=== PATIENT | female | born 1985 | race Caucasian/White ===

== ENCOUNTER 2016-12-14 21:30 | Emergency (ER) | payer MEDICAID ==
[~2016-12-14] VITALS: Ht 157.5 cm; Wt 62.0 kg
[~2016-12-14 21:30] MED LIST: LORA-441 PO
[2016-12-14 21:35] VITALS: Ht 157.5 cm; Wt 62.0 kg
[2016-12-15 00:19] LABS: URINE BLOOD (Dip) POC Negative (NEGATIVE)
[2016-12-15] MEDS ORDERED: HYDROCODONE/APAP (5/325) TAB PO ONE (01:00)
[2016-12-15 01:47] LABS: URINE BLOOD (Dip) POC Negative (NEGATIVE)
[2016-12-15 02:26] LABS: BASOPHILS % 0.3 % (0.0-2.0); EOSINOPHILS # 0.1 10^3/ul (0.0-0.5); EOSINOPHILS % 1.3 % (0.0-7.0); HEMATOCRIT 37.6 % (37.0-47.0); HEMOGLOBIN 13.2 g/dl (12.0-16.0); LYMPHOCYTES # 2.7 10^3/ul (0.8-2.9); LYMPHOCYTES % 37.6 % (15.0-51.0); MEAN CORPUSCULAR HEMOGLOBIN 31.5 pg (29.0-33.0); MEAN CORPUSCULAR HGB CONC 35.1 g/dl (32.0-37.0); MEAN CORPUSCULAR VOLUME 89.7 fl (82.0-101.0); MEAN PLATELET VOLUME 9.1 fl (7.4-10.4); MONOCYTE # 0.7 10^3/ul (0.3-0.9); MONOCYTES % 9.4 % (0.0-11.0); NEUTROPHIL # 3.7 10^3/ul (1.6-7.5); NEUTROPHILS % 51.4 % (39.0-77.0); PLATELET COUNT 209 10^3/UL (140-440); RED BLOOD COUNT 4.19 10^6/ul (4.20-5.40); RED CELL DISTRIBUTION WIDTH 13.3 % (11.5-14.5); UNCORRECTED WBC 7.1 10^3/ul (4.8-10.8); WHITE BLOOD COUNT 7.1 10^3/ul (4.8-10.8)
[2016-12-15 02:26] LABS: ADD UMIC NO; URINE BILIRUBIN (Dip) NEGATIVE (NEGATIVE); URINE BLOOD (Dip) NEGATIVE (NEGATIVE); URINE COLOR LT. YELLOW (YELLOW); URINE GLUCOSE (Dip) NEGATIVE (NEGATIVE); URINE KETONES (Dip) TRACE (NEGATIVE); URINE LEUKOCYTE ESTERASE (Dip) NEGATIVE (NEGATIVE); URINE NITRITE (Dip) NEGATIVE (NEGATIVE); URINE TOTAL PROTEIN (Dip) NEGATIVE (NEGATIVE); URINE UROBILINOGEN (Dip) 0.2 E.U./dL (0.1-1.0)
[2016-12-15 02:30] LABS: CONDITION 1
[2016-12-15 02:31] LABS: ALBUMIN 4.5 g/dl (3.3-4.9)
[2016-12-15 02:32] LABS: POTASSIUM 3.9 mmol/L (3.5-5.1)
[2016-12-15 02:34] LABS: ALBUMIN/GLOBULIN RATIO 1.07; BILIRUBIN,INDIRECT 0.4 mg/dl (0-1.1); BILIRUBIN,TOTAL 0.4 mg/dl (0.2-1.3); CREATININE 0.59 mg/dl (0.44-1.00); TOTAL PROTEIN 8.7 g/dl (6.1-8.1)
[2016-12-15 02:35] LABS: CALCIUM 9.3 mg/dl (8.4-10.2)
--- NOTE | 2016-12-15 02:35 | RADRPT ---
PROCEDURE: CT ABDOMEN/PELVIS WITHOUT CONTRAST CLINICAL INDICATION: 31-year-old female with abdominal pain. TECHNIQUE: The study was performed utilizing a GE swiftQueuepeed VCT 64-slice CT scanner. Direct axia l sections were obtained through the abdomen and pelvis without the use of intravenous contrast mate rial. Sagittal and coronal reformations were obtained. Automated exposure control and iterative yeyo nstruction techniques were utilized for this examination. The images were reviewed on a P[facility] workst [facility]. CTD/vol = 7.5 mGy; Total Exam DLP = 416.7 mGy-cm. COMPARISON: None. FINDINGS: There is a calcified granuloma within the medial aspect of the right lung base measuring 4 x 4 mm in axial image 3-24. There is no evidence for significant pleural effusion. The liver has a normal s ize and contour without focal areas of abnormal density. No intrahepatic nor extrahepatic biliary du ctal dilatation is seen. The gallbladder demonstrates no wall thickening nor pericholecystic fluid. No biliary stones are evident. The pancreas is without areas of abnormal attenuation. The spleen is identified and has a normal size without abnormal density. The adrenal glands are unremarkable. The kidneys are without abnormal density. No hydroureteronephrosis nor nephroureterolithiasis is eviden t. The urinary bladder contains minimal urine. There is retained stool within the colon without dany s bowel obstruction. An anastomotic reji are seen within the tip of the cecum consistent with pr ior appendectomy. The uterus is retroverted. There is no significant free fluid. The aortoiliac vessels are without aneurysmal dilatation. The osseous structures are intact. IMPRESSION: 1. Right lung base calcified 4 mm granuloma. 2. No CT evidence for obstructive uropathy or renal calculi. 3. Retained stool without gross bowel obstruction. 4. Status post appendectomy. .Jim Poon MD, Date Time Electronically viewed and signed by .Jim Poon MD, on 12/15/2016 02:35 .Vimal/
--- NOTE | 2016-12-15 02:37 | RADRPT ---
PROCEDURE: ULTRASOUND PELVIS CLINICAL INDICATION: 31-year-old female with pelvic pain. TECHNIQUE: Multiple sonographic images of the pelvis were obtained utilizing a transabdominal and endovaginal technique. The images were reviewed on a PACS workstation. COMPARISON: CT abdomen/pelvis obtained concurrently. FINDINGS: The uterus is visualized and measures 6.5 x 3.3 x 4.6 cm. The endometrial echo complex is within nor mal limits and measures 6.1 mm. There is trace fluid within the endometrial canal. There is trace f luid within the posterior cul-de-sac. The right ovary has a normal echotexture and measures 3.3 x 1 .9 x 2.9 cm. There is a small right ovarian follicular cyst measuring 1.1 x 1.1 cm. The left ovary h as a normal echotexture and measures 2.2 x 1.3 x 1.5 cm. There is flow identified within the ovarie s bilaterally. No adnexal masses are noted. IMPRESSION: 1. Trace fluid within the endometrial canal. 2. Small right ovarian follicular cyst. 3. Trace fluid within the posterior cul-de-sac. .Jim Poon MD, MD Date Time Electronically viewed and signed by .Jim Poon MD, on 12/15/2016 02:37 .M/
[2016-12-15] MEDS ORDERED: IBUP-1542 PO (03:12)
--- NOTE | 2016-12-15 03:22 | ERD ---
ER Documentation Chief Complaint Date/Time DATE: 12/15/16 TIME: 03:19 Chief Complaint kerwin pelvic pain going to back x 2 weeks now w/vag bleed of clots HPI This is a 31-year-old female presents to the ER with pelvic pain has been going on for the last week. Patient states that she's had this over the last 3 months however over the last week his current a lot worse. Today patient had a lot of vaginal bleeding with clots. Patient states she's not had her menstrual period for the last 3 months. However started bleeding on Friday. She denies any vaginal discharge. She denies any nausea vomiting or diarrhea. She denies any fevers or chills. His appetite is normal. Pelvic pain is described as sharp and is intermittent. It is nonradiating. Patient tried anything for the pain. ROS 12 point review of systems was done, all negative except per HPI. Medications Home Meds Active Scripts Ibuprofen* (Ibuprofen*) 600 Mg Tablet, 600 MG PO Q6 for 3 Days, TAB Prov:CEDRICK WYMAN 12/15/16 Lorazepam* (Ativan*) 0.5 Mg Tablet, 0.5 MG PO Q8H Y for ANXIETY, #10 TAB Prov:PAPI OLIVIA 08/01/16 Allergies Allergies: Coded Allergies: No Known Allergy (Unverified , 08/01/16) PMhx/Soc History of Surgery: No Anesthesia Reaction: No Hx Neurological Disorder: No Hx Respiratory Disorders: No Hx Cardiac Disorders: No Hx Psychiatric Problems: No Hx Miscellaneous Medical Probl: No Hx Alcohol Use: No Hx Substance Use: No Hx Tobacco Use: No Physical Exam Vitals Vital Signs Date Time Temp Pulse Resp B/P Pulse Ox O2 Delivery O2 Flow Rate FiO2 12/14/16 21:35 98.3 74 18 106/59 100 Physical Exam GENERAL: The patient is well developed and appropriate for usual state of health , in no apparent distress. HEENT: Atraumatic. CHEST: Clear to auscultation bilaterally. There are no rales, wheezes or rhonchi. HEART: Regular rate and rhythm. No murmurs, clicks, rubs or gallops. ABDOMEN: Soft, nontender and nondistended. Good bowel sounds. No rebound or guarding. No gross peritonitis. No gross organomegaly or masses. No Nielson sign or McBurney point tenderness. BACK: No midline or flank tenderness. EXTREMITIES: Full range of motion. Grossly neurovascularly intact. NEURO: Alert and oriented. SKIN: The skin is warm and dry. Result Diagram: 12/15/16 0148 12/15/16 0148 Results 24 hrs Laboratory Tests Test 12/15/16 00:20 12/15/16 01:41 12/15/16 01:48 Bedside Urine Blood Negative Negative Bedside Urine Glucose (UA) Negative Negative Bedside Urine Ketones (LAB) Negative Negative Bedside Urine Leukocyte Esterase (L Negative Negative Bedside Urine Nitrite (LAB) Negative Negative Bedside Urine Protein (LAB) Negative Negative Bedside Urine pH (LAB) 6.0 6.0 Urine Bilirubin NEGATIVE Urine Clarity CLEAR Urine Color LT. YELLOW Urine Glucose NEGATIVE% Urine Hemoglobin NEGATIVE Urine Ketones TRACE Urine Leukocyte Esterase NEGATIVE Urine Nitrite NEGATIVE Urine Specific [place] 1.025 Urine Total Protein NEGATIVE Urine Urobilinogen 0.2 E.U./dL Urine pH 5.5 Alanine Aminotransferase (ALT/SGPT) 30IU/L Albumin 4.5g/dl Albumin/Globulin Ratio 1.07 Alkaline Phosphatase 74IU/L Anion Gap 19 Aspartate Amino Transf (AST/SGOT) 20IU/L Basophils # 0.010^3/ul Basophils % 0.3% Blood Urea Nitrogen 14mg/dl Calcium Level 9.3mg/dl Carbon Dioxide Level 26mmol/L Chloride Level 104mmol/L Creatinine 0.59mg/dl Direct Bilirubin 0.00mg/dl Eosinophils # 0.110^3/ul Eosinophils % 1.3% Globulin 4.20g/dl Glucose Level 84mg/dl Hematocrit 37.6% Hemoglobin 13.2g/dl Indirect Bilirubin 0.4mg/dl Lipase 156U/L Lymphocytes # 2.710^3/ul Lymphocytes % 37.6% Mean Corpuscular Hemoglobin 31.5pg Mean Corpuscular Hemoglobin Concent 35.1g/dl Mean Corpuscular Volume 89.7fl Mean Platelet Volume 9.1fl Monocytes # 0.710^3/ul Monocytes % 9.4% Neutrophils # 3.710^3/ul Neutrophils % 51.4% Nucleated Red Blood Cells # 0.010^3/ul Nucleated Red Blood Cells % 0.0/100WBC Platelet Count 86392^3/UL Potassium Level 3.9mmol/L Red Blood Count 4.1910^6/ul Red Cell Distribution Width 13.3% Sodium Level 145mmol/L Total Bilirubin 0.4mg/dl Total Protein 8.7g/dl White Blood Count 7.110^3/ul Current Medications Medications (Trade) Dose Ordered Sig/Sunny Route PRN Reason Start Time Stop Time Status Last Admin Dose Admin Acetaminophen/ Hydrocodone Bitart ([place] (5/325)) 1 tab ONCE ONCE PO 12/15/16 01:00 12/15/16 01:01 DC 12/15/16 01:42 Procedures/MDM Differential diagnosis includes but is not limited to appendicitis, hernia, UTI , constipation, ectopic , ovarian torsion, , fibroid. At this time etiology of pelvic pain is unknown. There is a small ovarian cyst. She also had constipation. At this time patient evidence for acute abdomen. She is afebrile and well-appearing. She'll be sent home with ibuprofen. She is to follow-up with her primary care doctor within 1-2 days or return to ER sooner symptoms worsen. Medical decision making [place] with the patient she understands and agrees with plan. Departure Diagnosis: Primary Impression: Pelvic pain Condition: Stable Patient Instructions: Pelvic Pain, Unknown Cause [facility]: [facility] Usted se arteaga hecho un examen mdico de control que le indica que no est en barbara condicin que requiera tratamiento urgente en el Departamento de Emergencia. Un estudio ms profundo y el tratamiento de quinn condicin pueden esperar sin ningn riesgo hasta que usted sea atendida/o en el consultorio de quinn mdico o barbara cl ramonita. Es responsabilidad suya arreglar barbara maki para el seguimiento del afshin. MANEJO DE CONDICIONES NO URGENTES EN EL FUTURO 1) Si usted tiene un mdico de atencin primaria: Usted debera llamar a quinn mdico de atencin primaria antes de venir al departamento de emergencia. Despus de las horas de consultorio, quinn doctor o quinn asociado/a est disponible por telfono. El mdico o enfermero de nadiya en el servicio telefnico puede asesorarle por beverly medio para atender el problema, o afshin contrario se puede programar barbara maki. 2) Si usted no tiene un mdico de atencin primaria: Llame al mdico o clnica de referencia que aparece abajo sacha las horas de consultorio para hacer barbara maki para que le vean. CLINICAS: [facility] [phone] [facility] [phone] [facility] [phone] [facility] [facility] [phone] [facility] [place] [phone] [facility]. [phone] [address] Additional Instructions: Call your primary care doctor TOMORROW for an appointment during the next 1-2 days.See the doctor sooner or return here if your condition worsens before your appointment time. CEDRICK WYMAN Dec 15, 2016 03:22
[2016-12-15 03:32] VITALS: BP 98/50; PULSE 69; RESP 17; TEMP 97.8
== END 2016-12-15 03:32 | disposition home or self-care (01) ==
LOC: FTE 21:30
DX: R10.2 Pelvic and perineal pain (principal)
CPT/HCPCS: 36415; 74176; 76830; 76856; 80053; 81003; 83690; 85025; Z7502; Z7610

== ENCOUNTER 2017-03-02 20:58 | Emergency (ER) | payer MEDICAID ==
[~2017-03-02] VITALS: Ht 157.5 cm; Wt 60.0 kg
[~2017-03-02 20:58] MED LIST changes: +IBUP-1542 PO
[2017-03-02 21:07] VITALS: Ht 157.5 cm; Wt 60.0 kg
[2017-03-02 22:00] LABS: ADD SCAN DIFF NO; BASOPHILS % 0.1 % (0.0-2.0); EOSINOPHILS # 0.1 10^3/ul (0.0-0.5); EOSINOPHILS % 1.9 % (0.0-7.0); HEMATOCRIT 40.2 % (37.0-47.0); HEMOGLOBIN 13.9 g/dl (12.0-16.0); LYMPHOCYTES # 2.5 10^3/ul (0.8-2.9); MEAN CORPUSCULAR HEMOGLOBIN 31.1 pg (29.0-33.0); MEAN CORPUSCULAR HGB CONC 34.6 g/dl (32.0-37.0); MEAN CORPUSCULAR VOLUME 89.9 fl (82.0-101.0); MEAN PLATELET VOLUME 10.5 fl (7.4-10.4); MONOCYTE # 0.6 10^3/ul (0.3-0.9); MONOCYTES % 8.7 % (0.0-11.0); NEUTROPHILS % 54.7 % (39.0-77.0); PLATELET COUNT 244 10^3/UL (140-415); RED BLOOD COUNT 4.47 10^6/ul (4.20-5.40); RED CELL DISTRIBUTION WIDTH 11.9 % (11.5-14.5); WHITE BLOOD COUNT 7.2 10^3/ul (4.8-10.8)
[2017-03-02] MEDS ORDERED: LORAZEPAM 2 MG INJ IV ONE (22:00)
[2017-03-02 22:12] LABS: CHLORIDE 106 mmol/L (97-110); INR 0.94; PARTIAL THROMBOPLASTIN TIME 29.3 Sec (25.0-35.0); POTASSIUM 3.3 mmol/L (3.5-5.1); PROTIME 12.6 Sec (12.2-14.2); SODIUM 142 mmol/L (135-144)
[2017-03-02 22:14] LABS: CREATININE 0.58 mg/dl (0.44-1.00)
[2017-03-02 22:15] LABS: ALANINE AMINOTRANSFERASE 28 IU/L (13-69); ALKALINE PHOSPHATASE 80 IU/L (42-121); ASPARTATE AMINO TRANSFERASE 28 IU/L (15-46); BILIRUBIN,INDIRECT 0.2 mg/dl (0-1.1); BILIRUBIN,TOTAL 0.2 mg/dl (0.2-1.3); BLOOD UREA NITROGEN 14 mg/dl (7-20); CARBON DIOXIDE 23 mmol/L (21-31); GLUCOSE 102 mg/dl (70-220); TOTAL PROTEIN 9.2 g/dl (6.1-8.1)
[2017-03-02 22:16] LABS: CALCIUM 9.8 mg/dl (8.4-10.2)
[2017-03-02 22:23] LABS: ALBUMIN/GLOBULIN RATIO 1.19; ANION GAP 16 (8-16); B-TYPE NATRIURETIC PEPTIDE 16 PG/ML (0-125)
--- NOTE | 2017-03-02 22:26 | RADRPT ---
PROCEDURE: XR Chest AP portable CLINICAL INDICATION: Chest pain TECHNIQUE: An AP portable radiograph of the chest was submitted. COMPARISON: None. FINDINGS: Support Hardware: None Cardiovascular: The cardiovascular silhouette appears unremarkable. Lung Lorenzo: The lung lorenzo appear clear with no nodule, alveolar infiltrate, or interstitial promi nence evident. Pleural Spaces: No pneumothorax or pleural effusion is identified. Osseous Structures: The osseous structures appear intact. Soft Tissues: The soft tissues appear unremarkable. IMPRESSION: Unremarkable portable chest. Physician Masoud Date Time Electronically viewed and signed by Micheline Garza Physician on 03/02/2017 22:25 /
[2017-03-02 22:56] LABS: TROPONIN-I < 0.012 ng/ml (0.00-0.12)
[2017-03-02 23:18] LABS: ADD UMIC YES; URINE BILIRUBIN (Dip) NEGATIVE (NEGATIVE); URINE BLOOD (Dip) 1+ (NEGATIVE); URINE COLOR RED (YELLOW); URINE GLUCOSE (Dip) NEGATIVE (NEGATIVE); URINE KETONES (Dip) NEGATIVE (NEGATIVE); URINE LEUKOCYTE ESTERASE (Dip) NEGATIVE (NEGATIVE); URINE NITRITE (Dip) POSITIVE (NEGATIVE); URINE TOTAL PROTEIN (Dip) NEGATIVE (NEGATIVE); URINE UROBILINOGEN (Dip) 0.2 E.U./dL (0.1-1.0)
[2017-03-02 23:27] LABS: BACTERIA,URINE MODERATE; SQUAMOUS EPITHELIAL CELL,UR FEW
[2017-03-02] MEDS ORDERED: CIPR500T4 PO (23:49)
[2017-03-02] MEDS ORDERED: LORA-441 PO (23:49)
--- NOTE | 2017-03-02 23:51 | ERD ---
ER Documentation Chief Complaint Date/Time DATE: 03/02/17 TIME: 23:50 Chief Complaint arteaga, cp with radiation to left arm, n/v, HPI This is a 32 female, headache has been radiation of left arm. With minimal nausea vomiting. 2 episodes of vomiting. Nonbilious. Also complaining of urgency and frequency of urination. No fevers no chills. No other current complaints. ROS All systems reviewed and are negative except as per history of present illness. Medications Home Meds Active Scripts Lorazepam* (Ativan*) 0.5 Mg Tablet, 0.5 MG PO Q8H Y for ANXIETY, #10 TAB Prov:PEARL PETERSON S. 03/02/17 Ciprofloxacin Hcl* (Ciprofloxacin Hcl*) 500 Mg Tablet, 500 MG PO BID for 5 Days , TAB Prov:PEARL PETERSON S. 03/02/17 Ibuprofen* (Ibuprofen*) 600 Mg Tablet, 600 MG PO Q6 for 3 Days, TAB Prov:CEDRICK WYMAN 12/15/16 Lorazepam* (Ativan*) 0.5 Mg Tablet, 0.5 MG PO Q8H Y for ANXIETY, #10 TAB Prov:PAPI OLIVIA 08/01/16 Allergies Allergies: Coded Allergies: No Known Allergy (Unverified , 08/01/16) PMhx/Soc History of Surgery: Yes (appendectomy) Anesthesia Reaction: No Hx Neurological Disorder: No Hx Respiratory Disorders: No Hx Cardiac Disorders: Yes (HTN) Hx Psychiatric Problems: No Hx Miscellaneous Medical Probl: No Hx Alcohol Use: No Hx Substance Use: No Hx Tobacco Use: No Smoking Status: Never smoker Physical Exam Vitals Vital Signs Date Time Temp Pulse Resp B/P Pulse Ox O2 Delivery O2 Flow Rate FiO2 03/02/17 22:34 66 16 110/77 100 Nasal Cannula 03/02/17 22:03 Nasal Cannula 2 03/02/17 21:07 98.5 87 16 124/79 100 Physical Exam Const: [] Head: Atraumatic Eyes: Normal Conjunctiva ENT: Normal External Ears, Nose and Mouth. Neck: Full range of motion..~ No meningismus. Resp: Clear to auscultation bilaterally Cardio: Regular rate and rhythm, no murmurs Abd: Soft, non tender, non distended. Normal bowel sounds Skin: No petechiae or rashes Back: No midline or flank tenderness Ext: No cyanosis, or edema Neur: Awake and alert Psych: Normal Mood and Affect Result Diagram: 03/02/17215003/02/172150 Results 24 hrs Laboratory Tests Test 03/02/17 21:51 03/02/17 23:00 White Blood Count 7.210^3/ul Red Blood Count 4.4710^6/ul Hemoglobin 13.9g/dl Hematocrit 40.2% Mean Corpuscular Volume 89.9fl Mean Corpuscular Hemoglobin 31.1pg Mean Corpuscular Hemoglobin Concent 34.6g/dl Red Cell Distribution Width 11.9% Platelet Count 51488^3/UL Mean Platelet Volume 10.5fl Neutrophils % 54.7% Lymphocytes % 34.0% Monocytes % 8.7% Eosinophils % 1.9% Basophils % 0.1% Nucleated Red Blood Cells % 0.0/100WBC Neutrophils # 4.010^3/ul Lymphocytes # 2.510^3/ul Monocytes # 0.610^3/ul Eosinophils # 0.110^3/ul Basophils # 0.010^3/ul Nucleated Red Blood Cells # 0.010^3/ul Prothrombin Time 12.6Sec Prothrombin Time Ratio 1.0 INR International Normalized Ratio 0.94 Activated Partial Thromboplast Time 29.3Sec Sodium Level 142mmol/L Potassium Level 3.3mmol/L Chloride Level 106mmol/L Carbon Dioxide Level 23mmol/L Anion Gap 16 Blood Urea Nitrogen 14mg/dl Creatinine 0.58mg/dl Glucose Level 102mg/dl Calcium Level 9.8mg/dl Total Bilirubin 0.2mg/dl Direct Bilirubin 0.00mg/dl Indirect Bilirubin 0.2mg/dl Aspartate Amino Transf (AST/SGOT) 28IU/L Alanine Aminotransferase (ALT/SGPT) 28IU/L Alkaline Phosphatase 80IU/L Troponin I < 0.012ng/ml B-Type Natriuretic Peptide 16PG/ML Total Protein 9.2g/dl Albumin 5.0g/dl Globulin 4.20g/dl Albumin/Globulin Ratio 1.19 Urine Color RED Urine Clarity SL HAZY Urine pH 6.0 Urine Specific [place] 1.020 Urine Ketones NEGATIVE Urine Nitrite POSITIVE Urine Bilirubin NEGATIVE Urine Urobilinogen 0.2 E.U./dL Urine Leukocyte Esterase NEGATIVE Urine Microscopic RBC 2-5/HPF Urine Microscopic WBC 0-2/HPF Urine Squamous Epithelial Cells FEW Urine Bacteria MODERATE Urine Hemoglobin 1+ Urine Glucose NEGATIVE% Urine Total Protein NEGATIVE Current Medications Medications (Trade) Dose Ordered Sig/Sunny Route PRN Reason Start Time Stop Time Status Last Admin Dose Admin Lorazepam (Ativan) 1 mg ONCE ONCE IV 03/02/17 22:00 03/02/17 22:01 DC 03/02/17 22:06 Procedures/MDM EKG: Rate/Rhythm: [Normal Sinus Rhythm] QRS, ST, T-waves: [No changes consistent w/ acute ischemia] Impression: [No evidence of ischemia or arrhythmia] Chest X-ray 1V Interpreted by me: Soft Tissue: No acute abnormalities Bones: No acute abnormalities Mediastinum/Cardiac Silhouette/Lungs: [No acute abnormalities] Medical decision-making: Patient has evidence of anxiety. Patient states she has been very anxious over the past few days. She also has evidence of UTI. Patient will be discharged home with Cipro along with lorazepam. Follow-up in 8 hours for serial abdominal exams which he agrees. Departure Diagnosis: Primary Impression: Multiple complaints Condition: Stable Patient Instructions: Urinary Tract Infections in Women, Anxiety Reaction PEARL PETERSON Mar 02, 2017 23:51
[2017-03-03 00:07] VITALS: BP 102/70; PULSE 93; RESP 16; TEMP 97.5
== END 2017-03-03 00:10 | disposition home or self-care (01) ==
LOC: E/R 20:58
DX: F41.9 Anxiety disorder, unspecified (principal); N39.0 Urinary tract infection, site not specified; R11.2 Nausea with vomiting, unspecified; I10 Essential (primary) hypertension; R40.2142 Coma scale, eyes open, spontaneous, at arrival to emergency department; R40.2252 Coma scale, best verbal response, oriented, at arrival to emergency department; R40.2362 Coma scale, best motor response, obeys commands, at arrival to emergency department; R07.9 Chest pain, unspecified
CPT/HCPCS: 71010; 80053; 81001; 83880; 84484; 85025; 85610; 85730; 93005; J2060; 36415; 81003; 96374

== ENCOUNTER 2017-03-28 11:51 | Emergency (ER) | payer MEDICAID ==
[~2017-03-28] VITALS: Wt 55.4 kg
[~2017-03-28 11:51] MED LIST changes: +CIPR500T4 PO
[2017-03-28] MEDS ORDERED: ONDANSETRON 4 MG INJ IV STA (12:47)
[2017-03-28] MEDS ORDERED: morphine 4 MG/ML VIAL IV STA (12:47)
[2017-03-28 13:05] LABS: ADD UMIC YES; URINE BILIRUBIN (Dip) NEGATIVE (NEGATIVE); URINE BLOOD (Dip) 3+ (NEGATIVE); URINE COLOR LT. YELLOW (YELLOW); URINE GLUCOSE (Dip) NEGATIVE (NEGATIVE); URINE KETONES (Dip) NEGATIVE (NEGATIVE); URINE LEUKOCYTE ESTERASE (Dip) NEGATIVE (NEGATIVE); URINE NITRITE (Dip) NEGATIVE (NEGATIVE); URINE TOTAL PROTEIN (Dip) TRACE (NEGATIVE); URINE UROBILINOGEN (Dip) 0.2 E.U./dL (0.1-1.0)
[2017-03-28 13:19] LABS: BACTERIA,URINE MANY
[2017-03-28 13:47] LABS: ADD SCAN DIFF NO
[2017-03-28 13:51] LABS: BASOPHILS % 0.2 % (0.0-2.0); EOSINOPHILS # 0.1 10^3/ul (0.0-0.5); EOSINOPHILS % 1.9 % (0.0-7.0); HEMATOCRIT 38.4 % (37.0-47.0); HEMOGLOBIN 13.2 g/dl (12.0-16.0); LYMPHOCYTES # 1.9 10^3/ul (0.8-2.9); LYMPHOCYTES % 30.5 % (15.0-51.0); MEAN CORPUSCULAR HEMOGLOBIN 31.3 pg (29.0-33.0); MEAN CORPUSCULAR HGB CONC 34.4 g/dl (32.0-37.0); MONOCYTE # 0.5 10^3/ul (0.3-0.9); NEUTROPHIL # 3.6 10^3/ul (1.6-7.5); NEUTROPHILS % 58.9 % (39.0-77.0); PLATELET COUNT 213 10^3/UL (140-415); RED BLOOD COUNT 4.22 10^6/ul (4.20-5.40); RED CELL DISTRIBUTION WIDTH 12.2 % (11.5-14.5); WHITE BLOOD COUNT 6.2 10^3/ul (4.8-10.8)
[2017-03-28 14:06] LABS: ALBUMIN 4.7 g/dl (3.3-4.9)
[2017-03-28 14:07] LABS: POTASSIUM 3.7 mmol/L (3.5-5.1)
[2017-03-28 14:09] LABS: BILIRUBIN,INDIRECT 0.4 mg/dl (0-1.1); BILIRUBIN,TOTAL 0.4 mg/dl (0.2-1.3); CREATININE 0.8 mg/dl (0.44-1.00)
[2017-03-28 14:10] LABS: ALBUMIN/GLOBULIN RATIO 1.23; CALCIUM 9.1 mg/dl (8.4-10.2); TOTAL PROTEIN 8.5 g/dl (6.1-8.1)
--- NOTE | 2017-03-28 14:24 | RADRPT ---
PROCEDURE: US Pelvis. CLINICAL INDICATION: Right pelvic pain. TECHNIQUE: The pelvis was evaluated with transabdominal and transvaginal sonography in the axial a nd sagittal planes. COMPARISON: Pelvic ultrasound dated 12/15/2016. FINDINGS: Uterus: 5.8 x 3.4 x 4.2 cm. Endometrium: 2.6 mm. Right ovary: 3.2 x 1.5 x 2.1 cm. Left ovary: 2.9 x 1.5 x 2.2 cm. Uterine masses: None. Ovarian masses: None. Color Doppler and pulsed Doppler sonography demonstrate normal flow to the ova dio. Other pelvic masses: None. Free fluid: None. IMPRESSION: 1. Normal pelvic ultrasound. RPTAT: QQ .Bashir Jules MD, Date Time Electronically viewed and signed by .Bashir Jules MD, on 03/28/2017 14:24 .R/
[2017-03-28] MEDS ORDERED: SOD CHLORIDE 0.9% 1,000 ML IV ONE (15:30)
[2017-03-28] MEDS ORDERED: ONDA4TAB14 PO (16:31)
[2017-03-28] MEDS ORDERED: METR500T PO (16:31)
[2017-03-28] MEDS ORDERED: ACET1TAB40 PO (16:31)
[2017-03-28] MEDS ORDERED: CIPR500T4 PO (16:31)
--- NOTE | 2017-03-28 16:43 | ERD ---
ER Documentation Chief Complaint Date/Time DATE: 03/28/17 TIME: 16:38 Chief Complaint R SIDE AP AND POSSIBLE , NO VOMITING.DIARRHEA NOTED. HPI 31-year-old female patient with a past medical history of hypertension presents to the ED complaining of intermittent abdominal pain for the last 3 months. Reports that she has had diarrhea for the last 25 days and has had intermittent. Reports that she was here in November 2016 and was diagnosed with a right ovarian cyst. Reports that she feels like her abdomen is pulsating in the middle and has pain on the surrounding areas. States that she feels like her belly is inflamed. States that she also experienced some vaginal bleeding with clotting yesterday. States that she has had a previous appendectomy, 7 years ago. She is a . Denies any chest pain, shortness of breath, vomiting. Denies any abdominal trauma. ROS All systems reviewed and are negative except as per history of present illness. Medications Home Meds Active Scripts Ondansetron (Ondansetron Odt) 4 Mg Tab.rapdis, 4 MG PO Q6H Y for NAUSEA AND/OR VOMITING, #10 TAB Prov:ABHIJIT AARON PA-C 03/28/17 Acetaminophen with Codeine (Acetaminophen-Cod #3 Tablet) 1 Each Tablet, 1 TAB PO Q6H Y for PAIN, #14 TAB Prov:ABHIJIT AARON PA-C 03/28/17 Metronidazole* (Flagyl*) 500 Mg Tablet, 500 MG PO TID for 7 Days, TAB no drinking alcohol while taking this medication Prov:ABHIJIT AARON PA-C 03/28/17 Ciprofloxacin Hcl* (Ciprofloxacin Hcl*) 500 Mg Tablet, 500 MG PO BID for 7 Days , TAB Prov:ABHIJIT AARON PA-C 03/28/17 Lorazepam* (Ativan*) 0.5 Mg Tablet, 0.5 MG PO Q8H Y for ANXIETY, #10 TAB Prov:PEARL PETERSON 03/02/17 Ciprofloxacin Hcl* (Ciprofloxacin Hcl*) 500 Mg Tablet, 500 MG PO BID for 5 Days , TAB Prov:PEARL PETERSON 03/02/17 Ibuprofen* (Ibuprofen*) 600 Mg Tablet, 600 MG PO Q6 for 3 Days, TAB Prov:CEDRICK WYMAN 12/15/16 Lorazepam* (Ativan*) 0.5 Mg Tablet, 0.5 MG PO Q8H Y for ANXIETY, #10 TAB Prov:PAPI OLIVIA 08/01/16 Allergies Allergies: Coded Allergies: No Known Allergy (Unverified , 08/01/16) PMhx/Soc History of Surgery: Yes (appendectomy) Anesthesia Reaction: No Hx Neurological Disorder: No Hx Respiratory Disorders: No Hx Cardiac Disorders: Yes (HTN) Hx Psychiatric Problems: No Hx Miscellaneous Medical Probl: No Hx Alcohol Use: No Hx Substance Use: No Hx Tobacco Use: No Physical Exam Vitals Vital Signs Date Time Temp Pulse Resp B/P Pulse Ox O2 Delivery O2 Flow Rate FiO2 03/28/17 12:02 98.5 73 21 107/67 100 Physical Exam Const: Vbl-psg-timckoraj, well-nourished. In no acute distress. Head: Atraumatic, normocephalic Eyes: Normal Conjunctiva without injection. No purulent discharge. ENT: Normal external ear, nose. Moist oropharynx without tonsillar exudates. Non -erythematous pharynx. Uvula midline. No drooling. No trismus. Neck: No cervical midline tenderness. Full range of motion. No meningismus. No cervical lymphadenopathy. No JVD. Resp: Clear to auscultation bilaterally. No wheezing, rhonchi, rales, or crackles. No accessory muscle use. No retractions. Cardio: Regular rate and rhythm. No murmurs, rubs or gallops. Abd: Soft, diffuse tenderness to palpation, non distended. Normal bowel sounds. No palpable masses. No rebound tenderness. No guarding. Negative McBurney' s point. Negative psoas sign. Negative obturator sign. Skin: No petechiae or rashes Back: No midline tenderness. No CVA tenderness. Ext: No cyanosis, or edema. Neur: Awake and alert. Normal gait. Normal coordination. Psych: Normal Mood and Affect Results 24 hrs Laboratory Tests Test 03/28/17 12:37 03/28/17 13:30 Urine Color LT. YELLOW Urine Clarity CLEAR Urine pH 8.0 Urine Specific [place] 1.010 Urine Ketones NEGATIVE Urine Nitrite NEGATIVE Urine Bilirubin NEGATIVE Urine Urobilinogen 0.2 E.U./dL Urine Leukocyte Esterase NEGATIVE Urine Microscopic RBC 10-25/HPF Urine Microscopic WBC 5-10/HPF Urine Epithelial Cells FEW Urine Amorphous Phosphates MANY Urine Bacteria MANY Urine Hemoglobin 3+ Urine Glucose NEGATIVE% Urine Total Protein TRACE White Blood Count 6.210^3/ul Red Blood Count 4.2210^6/ul Hemoglobin 13.2g/dl Hematocrit 38.4% Mean Corpuscular Volume 91.0fl Mean Corpuscular Hemoglobin 31.3pg Mean Corpuscular Hemoglobin Concent 34.4g/dl Red Cell Distribution Width 12.2% Platelet Count 49071^3/UL Mean Platelet Volume 11.0fl Neutrophils % 58.9% Lymphocytes % 30.5% Monocytes % 8.0% Eosinophils % 1.9% Basophils % 0.2% Nucleated Red Blood Cells % 0.0/100WBC Neutrophils # 3.610^3/ul Lymphocytes # 1.910^3/ul Monocytes # 0.510^3/ul Eosinophils # 0.110^3/ul Basophils # 0.010^3/ul Nucleated Red Blood Cells # 0.010^3/ul Stool Occult Blood POSITIVE Sodium Level 139mmol/L Potassium Level 3.7mmol/L Chloride Level 102mmol/L Carbon Dioxide Level 25mmol/L Anion Gap 16 Blood Urea Nitrogen 15mg/dl Creatinine 0.80mg/dl Glucose Level 95mg/dl Calcium Level 9.1mg/dl Total Bilirubin 0.4mg/dl Direct Bilirubin 0.00mg/dl Indirect Bilirubin 0.4mg/dl Aspartate Amino Transf (AST/SGOT) 21IU/L Alanine Aminotransferase (ALT/SGPT) 30IU/L Alkaline Phosphatase 77IU/L Total Protein 8.5g/dl Albumin 4.7g/dl Globulin 3.80g/dl Albumin/Globulin Ratio 1.23 Lipase 151U/L Current Medications Medications (Trade) Dose Ordered Sig/Sunny Route PRN Reason Start Time Stop Time Status Last Admin Dose Admin Ondansetron HCl (Zofran Inj) 4 mg ONCE STAT IV 03/28/17 12:47 03/28/17 12:49 DC 03/28/17 13:07 Morphine Sulfate 4 mg 4 mg ONCE STAT IV 03/28/17 12:47 03/28/17 12:49 DC 03/28/17 13:07 Sodium Chloride (NS) 1,000 ml @ 1,000 mls/hr Q1H ONCE IV 03/28/17 15:30 03/28/17 16:29 DC 03/28/17 15:49 Procedures/MDM This is a 31-year-old female patient with no significant past medical history presents the ED complaining of intermittent abdominal pain that started 3 months ago associated with 25 days of slightly bloody diarrhea and vaginal bleeding. Patient is afebrile and nontoxic-appearing. Patient has normal vital signs. Patient was further worked up with CBC, CMP, lipase, UA, urine , pelvic ultrasound. Patient's pain and symptoms have improved after treatment with 4 mg IV morphine, 4 mg IV zofran, 1 L normal saline. CBC: No leukocytosis. No e/o of systemic infection. No e/o anemia. CMP: No e/o severe acidosis, alkalosis, renal failure, diabetic ketoacidosis, liver disease Lipase within normal limits. Urine: No leukocyte esterase, no nitrites, no hematuria. Urine : Negative Positive Hemoccult PROCEDURE: US Pelvis. CLINICAL INDICATION: Right pelvic pain. TECHNIQUE: The pelvis was evaluated with transabdominal and transvaginal sonography in the axial and sagittal planes. COMPARISON: Pelvic ultrasound dated 12/15/2016. FINDINGS: Uterus: 5.8 x 3.4 x 4.2 cm. Endometrium: 2.6 mm. Right ovary: 3.2 x 1.5 x 2.1 cm. Left ovary: 2.9 x 1.5 x 2.2 cm. Uterine masses: None. Ovarian masses: None. Color Doppler and pulsed Doppler sonography demonstrate normal flow to the ovaries. Other pelvic masses: None. Free fluid: None. IMPRESSION: 1. Normal pelvic ultrasound. Patient had a positive Hemoccult stool test here in the ED. Patient could likely have possible colitis. Patient just had a recent CT scan of the abdomen and pelvis without contrast in November which was negative for any acute findings. No leukocytosis noted here in the ED. All blood work is unremarkable. I believe the risks of radiation outweigh the benefits at this time. Patient could benefit from following up with a credit control administrator for a colonoscopy. Patient is appropriate for outpatient antibiotics. A differential diagnosis considered includes but is not limited to gastritis, GERD , peptic ulcer disease, cholecystitis, choledocholithiasis, cholangitis, pancreatitis, appendicitis, bowel obstruction, ileus, volvulus, nephrolithiasis , pyelonephritis, hepatitis, perforated viscus, diverticulitis, abdominal hernia , acute abdomen, mesenteric ischemia or other emergent conditions. This case was discussed with my supervising physician, Dr. Coffman who agreed with the management and discharge plan. Discharge medications: Zofran, Tylenol #3, Ciprofloxacin, Flagyl. Follow up with primary care physician in 1-2 days for referral to credit control administrator. Instructed patient to return to the ED sooner for any worsening symptoms. Patient's questions were answered. Patient understood and agreed with discharge plan. Patient discharged stable. Departure Diagnosis: Primary Impression: Abdominal pain Abdominal location: unspecified location Qualified Code: R10.9 - Abdominal pain, unspecified location Additional Impressions: Diarrhea Diarrhea type: unspecified type Qualified Code: R19.7 - Diarrhea, unspecified type Vaginal bleeding Condition: Stable Patient Instructions: What Is Ulcerative Colitis?, Treating Diarrhea, Abdominal Pain, Unknown Cause, (Female) Referrals: [facility] YOU HAVE RECEIVED A MEDICAL SCREENING EXAM AND THE RESULTS INDICATE THAT YOU DO NOT HAVE A CONDITION THAT REQUIRES URGENT TREATMENT IN THE EMERGENCY DEPARTMENT. FURTHER EVALUATION AND TREATMENT OF YOUR CONDITION CAN WAIT UNTIL YOU ARE SEEN IN YOUR DOCTORS OFFICE WITHIN THE NEXT 1-2 DAYS. IT IS YOUR RESPONSIBILITY TO MAKE AN APPOINTMENT FOR FOLOW-UP CARE. IF YOU HAVE A PRIMARY DOCTOR --you should call your primary doctor and schedule an appointment IF YOU DO NOT HAVE A PRIMARY DOCTOR YOU CAN CALL OUR PHYSICIAN REFERRAL HOTLINE AT IF YOU CAN NOT AFFORD TO SEE A PHYSICIAN YOU CAN CHOSE FROM THE FOLLOWING [facility] [address] [facility] [address] [facility]. [facility] [address] [facility] [facility] [address] [facility] [address] [facility]. [facility]. [address] [facility] [facility] YOU HAVE RECEIVED A MEDICAL SCREENING EXAM AND THE RESULTS INDICATE THAT YOU DO NOT HAVE A CONDITION THAT REQUIRES URGENT TREATMENT IN THE EMERGENCY DEPARTMENT. FURTHER EVALUATION AND TREATMENT OF YOUR CONDITION CAN WAIT UNTIL YOU ARE SEEN IN YOUR DOCTORS OFFICE WITHIN THE NEXT 1-2 DAYS. IT IS YOUR RESPONSIBILITY TO MAKE AN APPOINTMENT FOR FOLOW-UP CARE. IF YOU HAVE A PRIMARY DOCTOR --you should call your primary doctor and schedule and appointment IF YOU DO NOT HAVE A PRIMARY DOCTOR YOU CAN CALL OUR PHYSICIAN REFERRAL HOTLINE AT . IF YOU CAN NOT AFFORD TO SEE A PHYSICIAN YOU CAN CHOSE FROM THE FOLLOWING [facility] INSTITUTIONS: [facility] [address] [place] [address] [facility] [address] [place] [address] [facility] [address] [place] [address] [facility]ENT [facility]/SPECIALTIES Additional Instructions: Llame al doctor MAANA y messi barbara MOLLY PARA DENTRO DE 1-2 FRY para un referido a un gastroenterlogo y gineclogo. Regrese a estas instalaciones si no se mejora joss esperbamos o joss le dijimos. ABHIJIT AARON PA-C March 28, 2017 16:42 dijimos. ABHIJIT AARON PA-C March 28, 2017 16:42
== END 2017-03-28 17:36 | disposition home or self-care (01) ==
LOC: FTE 11:51
DX: R10.84 Generalized abdominal pain (principal); R19.7 Diarrhea, unspecified; N93.9 Abnormal uterine and vaginal bleeding, unspecified; I10 Essential (primary) hypertension; R10.2 Pelvic and perineal pain
CPT/HCPCS: 76830; 76856; 80053; 81001; 82270; 83690; 85025; J2270; J2405; J7030; 36415; 81003; 96374; 96375

== ENCOUNTER 2018-12-05 11:03 | Emergency (ER) | payer MEDICAID ==
[~2018-12-05] VITALS: Ht 152.4 cm; Wt 62.7 kg
[~2018-12-05 11:03] MED LIST changes: +ACET1TAB40 PO; +METR500T PO; +ONDA4TAB14 PO
[2018-12-05 11:07] VITALS: Ht 152.4 cm; Wt 62.7 kg
[2018-12-05] MEDS ORDERED: ONDANSETRON (ODT) 4 MG TAB ODT STA (12:11)
[2018-12-05] MEDS ORDERED: ONDA8TAB14 PO (13:24)
[2018-12-05] MEDS ORDERED: IBUP-1542 PO (13:24)
--- NOTE | 2018-12-05 13:27 | ERD ---
ER Documentation Chief Complaint Chief Complaint pt c/o abd pain, nausea feeling dizzy, dx with cyst 1 yr ago, same symptoms HPI 33-year-old female presents with multiple complaints for the last month. She has claims of nausea, nonspecific dizziness, bitemporal headache, lower abdominal pain left greater than right. Patient has a history of ovarian cyst and it feels similar. Patient has additional complaint that she has her me nstrual period every 2 weeks 3 days. She denies clots or tissue. She denies . Patient does not have a primary care doctor. ROS All systems reviewed and are negative except as per history of present illness. Medications Home Meds Active Scripts Ondansetron (Ondansetron Odt) 8 Mg Tab.rapdis, 8 MG PO Q6H PRN for NAUSEA AND/OR VOMITING, #10 TAB Prov:ILIANA AGUSTIN MD 12/05/18 Ibuprofen* (Motrin*) 600 Mg Tab, 600 MG PO Q6, #20 TAB Prov:ILIANA AGUSTIN MD 12/05/18 Ondansetron (Ondansetron Odt) 4 Mg Tab.rapdis, 4 MG PO Q6H PRN for NAUSEA AND/OR VOMITING, #10 TAB Prov:ABHIJIT AARON PA-C 03/28/17 Acetaminophen with Codeine (Acetaminophen-Cod #3 Tablet) 1 Each Tablet, 1 TAB PO Q6H PRN for PAIN, #14 TAB Prov:ABHIJIT AARON PA-C 03/28/17 Metronidazole* (Flagyl*) 500 Mg Tablet, 500 MG PO TID for 7 Days, TAB no drinking alcohol while taking this medication Prov:ABHIJIT AARON PA-C 03/28/17 Ciprofloxacin Hcl* (Ciprofloxacin Hcl*) 500 Mg Tablet, 500 MG PO BID for 7 Days, TAB Prov:ABHIJIT AARON PA-C 03/28/17 Lorazepam* (Ativan*) 0.5 Mg Tablet, 0.5 MG PO Q8H PRN for ANXIETY, #10 TAB Prov:PEARL PETERSON 03/02/17 Ciprofloxacin Hcl* (Ciprofloxacin Hcl*) 500 Mg Tablet, 500 MG PO BID for 5 Days, TAB Prov:PEARL PETERSON 03/02/17 Ibuprofen* (Ibuprofen*) 600 Mg Tablet, 600 MG PO Q6 for 3 Days, TAB Prov:ZAMZAMCEDRICK Lola 12/15/16 Lorazepam* (Ativan*) 0.5 Mg Tablet, 0.5 MG PO Q8H PRN for ANXIETY, #10 TAB Prov:PAPI OLIVIA MD 08/01/16 Allergies Allergies: Coded Allergies: No Known Allergy (Unverified , 08/01/16) PMhx/Soc History of Surgery: Yes (appendectomy) Anesthesia Reaction: No Hx Neurological Disorder: No Hx Respiratory Disorders: No Hx Cardiac Disorders: Yes (HTN) Hx Psychiatric Problems: No Hx Miscellaneous Medical Probl: No Hx Alcohol Use: No Hx Substance Use: No Hx Tobacco Use: No FmHx Family History: No diabetes, No coronary disease, No other Physical Exam Vitals Vital Signs Date Temp Pulse Resp B/P (MAP) Pulse Ox O2 O2 Flow FiO2 Time Delivery Rate 12/05/18 99.1 74 18 117/75 98 11:07 (89) Physical Exam Const: No acute distress Head: Atraumatic Eyes: Normal Conjunctiva ENT: Normal External Ears, Nose and Mouth. Neck: Full range of motion. No meningismus. Resp: Clear to auscultation bilaterally Cardio: Regular rate and rhythm, no murmurs Abd: Soft, non tender, non distended. Normal bowel sounds Skin: No petechiae or rashes Back: No midline or flank tenderness Ext: No cyanosis, or edema Neur: Awake and alert Psych: Normal Mood and Affect Result Diagram: 12/05/18 1225 12/05/18 1225 Results 24 hrs Laboratory Tests Test 12/05/18 12:25 12/05/18 12:26 12/05/18 12:31 White Blood Count 4.9 10^3/ul Red Blood Count 4.39 10^6/ul Hemoglobin 13.3 g/dl Hematocrit 40.0 % Mean Corpuscular Volume 91.1 fl Mean Corpuscular Hemoglobin 30.3 pg Mean Corpuscular 33.3 g/dl Hemoglobin Concent Red Cell Distribution Width 12.5 % Platelet Count 237 10^3/UL Mean Platelet Volume 10.2 fl Immature Granulocytes % 0.600 % Neutrophils % 64.0 % Lymphocytes % 26.8 % Monocytes % 7.0 % Eosinophils % 1.4 % Basophils % 0.2 % Nucleated Red Blood Cells % 0.0 /100WBC Immature Granulocytes # 0.030 10^3/ul Neutrophils # 3.1 10^3/ul Lymphocytes # 1.3 10^3/ul Monocytes # 0.3 10^3/ul Eosinophils # 0.1 10^3/ul Basophils # 0.0 10^3/ul Nucleated Red Blood Cells # 0.0 10^3/ul Sodium Level 141 mmol/L Potassium Level 3.8 mmol/L Chloride Level 101 mmol/L Carbon Dioxide Level 27 mmol/L Anion Gap 13 Blood Urea Nitrogen 8 mg/dl Creatinine 0.54 mg/dl Est Glomerular Filtrat > 60 mL/min Rate mL/min Glucose Level 103 mg/dl Calcium Level 9.7 mg/dl Total Bilirubin 0.4 mg/dl Direct Bilirubin 0.00 mg/dl Indirect Bilirubin 0.4 mg/dl Aspartate Amino 28 IU/L Transf (AST/SGOT) Alanine 26 IU/L Aminotransferase (ALT/SGPT) Alkaline Phosphatase 60 IU/L Total Protein 8.6 g/dl Albumin 4.8 g/dl Globulin 3.80 g/dl Albumin/Globulin Ratio 1.26 Lipase 120 U/L Urine Color YELLOW Urine Clarity SLIGHTLY CLOUDY Urine pH 7.0 Urine Specific [place] 1.014 Urine Ketones NEGATIVE mg/dL Urine Nitrite NEGATIVE mg/dL Urine Bilirubin NEGATIVE mg/dL Urine Urobilinogen NEGATIVE mg/dL Urine Leukocyte Esterase TRACE Celestino/ul Urine Microscopic RBC 0 /HPF Urine Microscopic WBC 2 /HPF Urine Squamous Epithelial Cells FEW /HPF Urine Hemoglobin NEGATIVE mg/dL Urine Glucose NEGATIVE mg/dL Urine Total Protein NEGATIVE mg/dl POC Beta HCG, Qualitative NEGATIVE Current Medications Medications Dose Sig/Sunny Start Time Status Last (Trade) Ordered Route PRN Stop Time Admin Dose Reason Admin Ondansetron 8 mg ONCE STAT 12/05/18 DC 12/05/18 HCl (Zofran ODT 12:11 12:24 Odt) 12/05/18 12:13 Procedures/MDM Patient presents with multiple complaints including bitemporal headache, dizziness, lower abdominal pain, menstrual period every 2 weeks. She is essentially has a normal physical exam. CBC, CMP, UA showed no significant acute abnormalities. HCG is negative. Pelvic ultrasound shows a left-sided 1.7 cm cyst otherwise no acute findings and no evidence of torsion. Patient presents with multiple somatic complaints of uncertain etiology. She does have an ovarian cyst without signs of torsion. She has no signs of surgical abdomen or ill appearance or concerning symptoms. I am recommending primary care follow-up and return precautions. We treated ibuprofen, Zofran for nausea, instructions to return for new or worsening symptoms with primary care doctor as directed. Urine sent for gonorrhea chlamydia. The patient was stable with no new complaints during the ER course. Clinically, there is no current evidence to suggest meningitis, sepsis, acute abdomen, pneumonia, stroke, acute coronary syndrome, pulmonary embolism, aortic dissection or any other emergent condition appearing to require further evaluation or hospitalization. Patient counseled regarding my diagnostic impression and care plan. Prior to discharge all q uestions answered. Pt agrees with treatment plan and understands strict return precautions. Pt is instructed to follow up with primary care provider within 24- 48 hours. Precautionary instructions provided including instructions to return to the ER if not improving or for any worsening or changing symptoms or concerns. Departure Diagnosis: Primary Impression: Ovarian cyst Laterality: left Qualified Codes: N83.202 - Unspecified ovarian cyst, left side Additional Impression: Pelvic pain Condition: Stable Patient Instructions: Ovarian Cyst, Pelvic Pain, Unknown Cause [facility]errals: [facility] ted se arteaga hecho un examen mdico de control que le indica que no est en barbara condicin que requiera tratamiento urgente en el Departamento de Emergencia. Un estudio ms profundo y el tratamiento de quinn condicin pueden esperar sin ningn riesgo hasta que usted sea atendida/o en el consultorio de quinn mdico o barbara clnica. Es responsabilidad suya arreglar barbara maki para el seguimiento del afshin. MANEJO DE CONDICIONES NO URGENTES EN EL FUTURO 1) Si usted tiene un mdico de atencin primaria: Usted debera llamar a quinn mdico de atencin primaria antes de venir al departamento de emergencia. Despus de las horas de consultorio, quinn doctor o quinn asociado/a est disponible por telfono. El mdico o enfermero de nadiya en el servicio telefnico puede asesorarle por beverly medio para atender el problema, o afshin contrario se puede programar barbara maki. 2) Si usted no tiene un mdico de atencin primaria: Llame al mdico o clnica de referencia que aparece abajo sacha las horas de consultorio para hacer barbara maki para que le vean. CLINICAS: [facility] [phone] [address] [facility] [phone] [facility] [phone] [facility] [phone] [facility] [phone] [address] [facility] [phone] ILIANA HIGGINS MD Dec 05, 2018 13:27
[2018-12-05 13:48] VITALS: BP 122/73; PULSE 79; RESP 18
== END 2018-12-05 13:49 | disposition home or self-care (01) ==
LOC: FTE 11:03
DX: N83.202 Unspecified ovarian cyst, left side (principal); R10.2 Pelvic and perineal pain; I10 Essential (primary) hypertension
CPT/HCPCS: 36415; 76830; 76856; 80053; 81001; 81025; 83690; 85025; 87591; Z7502; Z7610

== ENCOUNTER 2018-12-07 13:37 | Emergency (ER) | payer MEDICAID ==
[~2018-12-07] VITALS: Ht 167.6 cm; Wt 88.9 kg
[~2018-12-07 13:37] MED LIST changes: +ONDA8TAB14 PO
[2018-12-07 13:51] VITALS: Ht 167.6 cm; Wt 88.9 kg
[2018-12-07] MEDS ORDERED: LIDOCAINE/MYLANTA 40 ML BTL PO STA (15:49)
[2018-12-07] MEDS ORDERED: ONDANSETRON (ODT) 4 MG TAB ODT STA (15:49)
[2018-12-07] MEDS ORDERED: FAMOTIDINE 20 MG TAB PO STA (15:49)
[2018-12-07] MEDS ORDERED: morphine 4 MG/ML VIAL IM STA (15:49)
--- NOTE | 2018-12-07 16:29 | ERD ---
ER Documentation Chief Complaint Chief Complaint Complains of an abdominal pain x 3 days HPI 33-year-old female presenting with burning epigastric pain radiating to her back that started yesterday. She was here 3 days ago for left adnexal pain and was given ibuprofen for ovarian cyst. She has been taking ibuprofen every 6 hours f or the past 3 days. Yesterday she started having epigastric pain that described as burning, associated with belching, nausea but no vomiting. She denies melena or hematochezia. She states the pain is mostly intermittent. Worse with walking. No fevers or chills. No dysuria. ROS All systems reviewed and are negative except as per history of present illness. Medications Home Meds Active Scripts Metoclopramide* (Reglan*) 10 Mg Tablet, 10 MG PO Q6 PRN for NAUSEA AND/OR VOMITING, #10 TAB Prov:NEVIN ROCHA MD 12/07/18 Famotidine* (Pepcid*) 20 Mg Tablet, 20 MG PO BID for 14 Days, TAB Prov:NEVIN ROCHA MD 12/07/18 Ondansetron (Ondansetron Odt) 8 Mg Tab.rapdis, 8 MG PO Q6H PRN for NAUSEA AND/OR VOMITING, #10 TAB Prov:ILIANA AGUSTIN MD 12/05/18 Ibuprofen* (Motrin*) 600 Mg Tab, 600 MG PO Q6, #20 TAB Prov:ILIANA AGUSTIN MD 12/05/18 Ondansetron (Ondansetron Odt) 4 Mg Tab.rapdis, 4 MG PO Q6H PRN for NAUSEA AND/OR VOMITING, #10 TAB Prov:ABHIJIT AARON PA-C 03/28/17 Acetaminophen with Codeine (Acetaminophen-Cod #3 Tablet) 1 Each Tablet, 1 TAB PO Q6H PRN for PAIN, #14 TAB Prov:ABHIJIT AARON PA-C 03/28/17 Metronidazole* (Flagyl*) 500 Mg Tablet, 500 MG PO TID for 7 Days, TAB no drinking alcohol while taking this medication Prov:ABHIJIT AARON PA-C 03/28/17 Ciprofloxacin Hcl* (Ciprofloxacin Hcl*) 500 Mg Tablet, 500 MG PO BID for 7 Days, TAB Prov:ABHIJIT AARON PA-C 03/28/17 Lorazepam* (Ativan*) 0.5 Mg Tablet, 0.5 MG PO Q8H PRN for ANXIETY, #10 TAB Prov:PEARL PETERSON S. 03/02/17 Ciprofloxacin Hcl* (Ciprofloxacin Hcl*) 500 Mg Tablet, 500 MG PO BID for 5 Days, TAB Prov:PEARL PETERSON S. 03/02/17 Ibuprofen* (Ibuprofen*) 600 Mg Tablet, 600 MG PO Q6 for 3 Days, TAB Prov:CEDRICK WYMAN 12/15/16 Lorazepam* (Ativan*) 0.5 Mg Tablet, 0.5 MG PO Q8H PRN for ANXIETY, #10 TAB Prov:PAPI OLIVIA MD 08/01/16 Allergies Allergies: Coded Allergies: No Known Allergy (Unverified , 12/07/18) PMhx/Soc History of Surgery: Yes (appendectomy) Anesthesia Reaction: No Hx Neurological Disorder: No Hx Respiratory Disorders: No Hx Cardiac Disorders: Yes (HTN) Hx Psychiatric Problems: No Hx Miscellaneous Medical Probl: No Hx Alcohol Use: No Hx Substance Use: No Hx Tobacco Use: No FmHx Family History: No diabetes Physical Exam Vitals Vital Signs Date Temp Pulse Resp B/P (MAP) Pulse Ox O2 O2 Flow FiO2 Time Delivery Rate 12/07/18 99.0 115 20 115/69 97 13:51 (84) Physical Exam Const: Mild distress secondary to pain, nontoxic Head: Atraumatic Eyes: Normal Conjunctiva ENT: Normal External Ears, Nose and Mouth. Neck: Full range of motion. No meningismus. Resp: Clear to auscultation bilaterally Cardio: Regular rate and rhythm, no murmurs Abd: Soft, epigastric and right upper quadrant tenderness to palpation without guarding or rebound. non distended. Normal bowel sounds Skin: No petechiae or rashes Back: No midline or flank tenderness Ext: No cyanosis, or edema Neur: Awake and alert Psych: Normal Mood and Affect Result Diagram: 12/07/18 1557 12/07/18 1557 Results 24 hrs Laboratory Tests Test 12/07/18 15:57 White Blood Count 6.5 10^3/ul Red Blood Count 4.42 10^6/ul Hemoglobin 13.4 g/dl Hematocrit 40.5 % Mean Corpuscular Volume 91.6 fl Mean Corpuscular Hemoglobin 30.3 pg Mean Corpuscular Hemoglobin Concent 33.1 g/dl Red Cell Distribution Width 12.4 % Platelet Count 228 10^3/UL Mean Platelet Volume 10.3 fl Immature Granulocytes % 0.800 % Neutrophils % 60.6 % Lymphocytes % 28.9 % Monocytes % 8.2 % Eosinophils % 1.2 % Basophils % 0.3 % Nucleated Red Blood Cells % 0.0 /100WBC Immature Granulocytes # 0.050 10^3/ul Neutrophils # 3.9 10^3/ul Lymphocytes # 1.9 10^3/ul Monocytes # 0.5 10^3/ul Eosinophils # 0.1 10^3/ul Basophils # 0.0 10^3/ul Nucleated Red Blood Cells # 0.0 10^3/ul Urine Color STRAW Urine Clarity CLEAR Urine pH 7.0 Urine Specific [place] 1.013 Urine Ketones NEGATIVE mg/dL Urine Nitrite NEGATIVE mg/dL Urine Bilirubin NEGATIVE mg/dL Urine Urobilinogen NEGATIVE mg/dL Urine Leukocyte Esterase NEGATIVE [place]/ul Urine Hemoglobin NEGATIVE mg/dL Urine Glucose NEGATIVE mg/dL Urine Total Protein NEGATIVE mg/dl Sodium Level 138 mmol/L Potassium Level 4.1 mmol/L Chloride Level 101 mmol/L Carbon Dioxide Level 27 mmol/L Anion Gap 10 Blood Urea Nitrogen 15 mg/dl Creatinine 0.65 mg/dl Est Glomerular Filtrat Rate mL/min > 60 mL/min Glucose Level 99 mg/dl Calcium Level 9.6 mg/dl Total Bilirubin 0.2 mg/dl Direct Bilirubin 0.00 mg/dl Indirect Bilirubin 0.2 mg/dl Aspartate Amino Transf (AST/SGOT) 28 IU/L Alanine Aminotransferase (ALT/SGPT) 28 IU/L Alkaline Phosphatase 65 IU/L Total Protein 8.7 g/dl Albumin 5.0 g/dl Globulin 3.70 g/dl Albumin/Globulin Ratio 1.35 Lipase 152 U/L Serum HCG, Qualitative NEGATIVE Current Medications Medications Dose Sig/Sunny Start Time Status Last (Trade) Ordered Route PRN Stop Time Admin Dose Reason Admin Morphine 6 mg ONCE STAT 12/07/18 DC 12/07/18 Sulfate IM 15:49 16:17 (morphine) 12/07/18 15:53 Famotidine 20 mg ONCE STAT 12/07/18 DC 12/07/18 (Pepcid) PO 15:49 16:16 12/07/18 15:53 40 ml ONCE STAT 12/07/18 DC 12/07/18 Miscellaneous PO 15:49 16:16 Medication 12/07/18 15:53 (Gi Cocktail (2)) Ondansetron 4 mg ONCE STAT 12/07/18 DC 12/07/18 HCl (Zofran ODT 15:49 16:16 Odt) 12/07/18 15:53 Procedures/MDM EMERGENT LABS AND DIAGNOSTIC STUDIES: Lab Results above were reviewed and interpreted by me. CBC: no anemia or evidence of infection CMP: No evidence of electrolyte abnormality, renal failure, hypoglycemia, liver failure, or biliary obstruction Lipase: no evidence of pancreatitis UA: no evidence of infection Radiology Results as interpreted by Radiology below were reviewed by Nicol Rocha MD: Ultrasound gallbladder did not show any acute abnormalities Initial Nursing notes reviewed. Previous Medical Records requested via the Electronic Health Record. EMERGENCY DEPARTMENT COURSE / MEDICAL DECISION MAKING: I suspect the patient is likely suffering from NSAID induced gastritis. Vitals were notable for mild tachycardia, likely secondary to pain and some level of dehydration. Labs did not show any significant abnormalities. There is no evidence of cholecystitis, hepatitis,, choledocholithiasis, pancreatitis. I do not suspect acute surgical abdomen or colitis. Patient was treated with morphine, Pepcid orally, antiemetics, and GI cocktail with improvement of her symptoms. She is tolerating fluids in the ER. I discussed the differential diagnoses with her and her likely diagnosis. She will be prescribed Pepcid and Reglan for control of her symptoms. I advised that she stop taking any type of NSAID and only take Tylenol for her pain. Follow-up with PCP was recommended in 2-3 days. Return precautions discussed. Departure Diagnosis: Primary Impression: Epigastric pain Condition: Stable EKMEKJIAN,NELLIE R. MD Dec 07, 2018 16:29
[2018-12-07] MEDS ORDERED: METO10TA92 PO (17:14)
[2018-12-07] MEDS ORDERED: FAMO-96 PO (17:14)
[2018-12-07 17:24] VITALS: BP 113/77; PULSE 62; RESP 17
== END 2018-12-07 17:25 | disposition home or self-care (01) ==
LOC: FTE 13:37
DX: R10.13 Epigastric pain (principal); I10 Essential (primary) hypertension; R11.0 Nausea
CPT/HCPCS: 36415; 76705; 80053; 81003; 83690; 84703; 85025; 96372; J2270; Z7502; Z7610

== ENCOUNTER 2019-01-26 18:23 | Emergency (ER) | payer MEDICAID ==
[~2019-01-26] VITALS: Ht 160 cm; Wt 62.9 kg
[~2019-01-26 18:23] MED LIST changes: +FAMO-96 PO; +METO10TA92 PO
[2019-01-26 18:46] VITALS: Ht 160 cm; Wt 62.9 kg
[2019-01-26] MEDS ORDERED: D-ME118S24 PO (21:54)
[2019-01-26] MEDS ORDERED: ACET325T33 PO (21:54)
[2019-01-26] MEDS ORDERED: METH750T93 PO (21:54)
--- NOTE | 2019-01-26 22:00 | ERD ---
ER Documentation Chief Complaint Chief Complaint Cough, chest wall pain, L upper back pain X 1 wk HPI 33-year-old female presents for cough and chest wall pain times 1 week. Patient also states that she has left shoulder pain. She also complains of subjective fever and sore throat. SHe took Tylenol 500 mg at home with mild relief. She has an allergy to Motrin. No significant past medical history otherwise. Denies nausea or vomiting. Denies shortness of breath. ROS All systems reviewed and are negative except as per history of present illness. Medications Home Meds Active Scripts D-Methorphan Hb/P-Epd HCl/Bpm (Ucsyufwojd-Ijofptpahhn-Tn Syr) 118 Ml Syrup, 5 ML PO Q4H PRN for COUGH, #1 BOTTLE Prov:GRICELDA ARREDONDO DO 01/26/19 Methocarbamol* (Robaxin*) 750 Mg Tablet, 750 MG PO TID PRN for MUSCLE SPASMS, #30 TAB Prov:GRICELDA ARREDONDO DO 01/26/19 Acetaminophen* (Tylenol*) 325 Mg Tablet, 650 MG PO Q6H PRN for MILD PAIN(1-3)OR ELEVATED TEMP, #60 TAB Prov:GRICELDA ARREDONDO DO 01/26/19 Metoclopramide* (Reglan*) 10 Mg Tablet, 10 MG PO Q6 PRN for NAUSEA AND/OR VOMITING, #10 TAB Prov:NEVIN FONTANEZ MD 12/07/18 Famotidine* (Pepcid*) 20 Mg Tablet, 20 MG PO BID for 14 Days, TAB Prov:NEVIN FONTANEZ MD 12/07/18 Ondansetron (Ondansetron Odt) 8 Mg Tab.rapdis, 8 MG PO Q6H PRN for NAUSEA AND/OR VOMITING, #10 TAB Prov:ILIANA AGUSTIN MD 12/05/18 Ibuprofen* (Motrin*) 600 Mg Tab, 600 MG PO Q6, #20 TAB Prov:ILIANA AGUSTIN MD 12/05/18 Ondansetron (Ondansetron Odt) 4 Mg Tab.rapdis, 4 MG PO Q6H PRN for NAUSEA AND/OR VOMITING, #10 TAB Prov:ABHIJIT AARON PA-C 03/28/17 Acetaminophen with Codeine (Acetaminophen-Cod #3 Tablet) 1 Each Tablet, 1 TAB PO Q6H PRN for PAIN, #14 TAB Prov:ABHIJIT AARON Shelia MEJIA 03/28/17 Metronidazole* (Flagyl*) 500 Mg Tablet, 500 MG PO TID for 7 Days, TAB no drinking alcohol while taking this medication Prov:ABHIJIT AARON Shelia MEJIA 03/28/17 Ciprofloxacin Hcl* (Ciprofloxacin Hcl*) 500 Mg Tablet, 500 MG PO BID for 7 Days, TAB Prov:ABHIJIT AARON Shelia MEJIA 03/28/17 Lorazepam* (Ativan*) 0.5 Mg Tablet, 0.5 MG PO Q8H PRN for ANXIETY, #10 TAB Prov:PEARL PETERSON S. 03/02/17 Ciprofloxacin Hcl* (Ciprofloxacin Hcl*) 500 Mg Tablet, 500 MG PO BID for 5 Days, TAB Prov:LISETTEHAMARBELLA ALEMANEL S. 03/02/17 Ibuprofen* (Ibuprofen*) 600 Mg Tablet, 600 MG PO Q6 for 3 Days, TAB Prov:CEDRICK WYMAN 12/15/16 Lorazepam* (Ativan*) 0.5 Mg Tablet, 0.5 MG PO Q8H PRN for ANXIETY, #10 TAB Prov:PAPI OLIVIA MD 08/01/16 Allergies Allergies: Coded Allergies: No Known Allergy (Unverified , 12/07/18) PMhx/Soc History of Surgery: Yes (appendectomy) Anesthesia Reaction: No Hx Neurological Disorder: No Hx Respiratory Disorders: No Hx Cardiac Disorders: Yes (HTN) Hx Psychiatric Problems: No Hx Miscellaneous Medical Probl: No Hx Alcohol Use: No Hx Substance Use: No Hx Tobacco Use: No Smoking Status: Never smoker Physical Exam Vitals Vital Signs Date Temp Pulse Resp B/P (MAP) Pulse Ox O2 O2 Flow FiO2 Time Delivery Rate 01/26/19 97.5 75 18 111/72 100 18:46 (85) Physical Exam Const: No acute distress Head: Atraumatic Eyes: Normal Conjunctiva ENT: Normal External Ears, bilateral tympanic membrane intact without erythema or bulging noted, nose and Mouth examination normal, no tonsillar swelling or exudate noted Neck: Full range of motion. No meningismus. Resp: Clear to auscultation bilaterally, no wheezing, rales, rhonchi Cardio: Regular rate and rhythm, no murmurs, anterior chest wall tenderness palpation Skin: No petechiae or rashes Ext: No cyanosis, or edema, left upper back/shoulder tenderness to palpation Neur: Awake and alert, bilateral upper extremity sensation intact Psych: Normal Mood and Affect Procedures/MDM Medical Decision Making: Differential diagnosis includes but not limited to upper respiratory infection, pneumonia, sepsis, meningitis. Patient appeared well on physical examination, nontoxic appearing. Lungs were clear to auscultation bilaterally. There is low suspicion for pneumonia, sepsis, meningitis. Patient likely has an upper respiratory infection, likely viral. Therefore antibiotics not indicated. Discussed symptomatic treatment with patient who agrees with plan. Patient given prescription for supportive medications. Patient advised to follow up with PCP in 1-2 days. Patient advised to return to ED for new or worsening symptoms. Patient stable on discharge from the ED. Disclaimer: Inadvertent spelling and grammatical errors are likely due to EHR/dictation software use and do not reflect on the overall quality of patient care. Also, please note that the electronic time recorded on this note does not necessarily reflect the actual time of the patient encounter. Departure Diagnosis: Primary Impression: Cough Condition: Fair Patient Instructions: Preventing Common Respiratory Infections Referrals: [facility] YOU HAVE RECEIVED A MEDICAL SCREENING EXAM AND THE RESULTS INDICATE THAT YOU DO NOT HAVE A CONDITION THAT REQUIRES URGENT TREATMENT IN THE EMERGENCY DEPARTMENT. FURTHER EVALUATION AND TREATMENT OF YOUR CONDITION CAN WAIT UNTIL YOU ARE SEEN IN YOUR DOCTORS OFFICE WITHIN THE NEXT 1-2 DAYS. IT IS YOUR RESPONSIBILITY TO MAKE AN APPOINTMENT FOR FOLOW-UP CARE. IF YOU HAVE A PRIMARY DOCTOR --you should call your primary doctor and schedule an appointment IF YOU DO NOT HAVE A PRIMARY DOCTOR YOU CAN CALL OUR PHYSICIAN REFERRAL HOTLINE AT IF YOU CAN NOT AFFORD TO SEE A PHYSICIAN YOU CAN CHOSE FROM THE FOLLOWING [facility] [address] [facility] [address] [facility] [address] [facility] [address] [facility]. [facility] [address] [facility]. [facility]. [address] Additional Instructions: Call your primary care doctor TOMORROW for an appointment during the next 1-2 days.See the doctor sooner or return here if your condition worsens before your appointment time. Llame al doctor MAANA y messi barbara MOLLY PARA DENTRO DE 1-2 FRY.Dgale a la secretaria que nosotros le instruimos hacer esta molly.Avise o llame si quinn condicin se empeora antes de la molly. Regresa aqui si peor o no mejor. GRICELDA ARREDONDO DO Jan 26, 2019 22:00
[2019-01-26 22:18] VITALS: BP 122/63; PULSE 80; RESP 16
== END 2019-01-26 22:19 | disposition home or self-care (01) ==
LOC: FTE 18:23
DX: R05 Cough (principal); I10 Essential (primary) hypertension
CPT/HCPCS: 99282

== ENCOUNTER 2019-05-16 18:18 | Emergency (ER) | payer MEDICAID ==
[~2019-05-16] VITALS: Ht 152.4 cm; Wt 67.8 kg
[~2019-05-16 18:18] MED LIST changes: +ACET325T33 PO; +D-ME118S24 PO; +METH750T93 PO
[2019-05-16 18:19] VITALS: Ht 152.4 cm; Wt 67.8 kg
[2019-05-16] MEDS ORDERED: KETOROLAC 30 MG INJ IM STA (19:24)
[2019-05-16] MEDS ORDERED: ONDANSETRON (ODT) 4 MG TAB ODT STA ×2 (19:24→21:29)
[2019-05-16] MEDS ORDERED: FAMOTIDINE 20 MG TAB PO STA (19:24)
[2019-05-16] MEDS ORDERED: LIDOCAINE 1% (MPF) 5 ML VIAL INFIL ONE (21:30)
[2019-05-16] MEDS ORDERED: metroNIDAZOLE 500 MG TAB PO ONE (21:30)
[2019-05-16] MEDS ORDERED: AZITHROMYCIN 500 MG TAB PO ONE (21:30)
[2019-05-16] MEDS ORDERED: CEFTRIAXONE 1 GM INJ IM ONE (21:30)
[2019-05-16] MEDS ORDERED: FAMO-96 PO (21:36)
[2019-05-16] MEDS ORDERED: ONDA4TAB14 PO (21:36)
[2019-05-16] MEDS ORDERED: CEPH-443 PO (21:36)
[2019-05-16] MEDS ORDERED: TRAM50TA2 PO (21:37)
[2019-05-16] MEDS ORDERED: ACET500C5 PO (21:37)
[2019-05-16] MEDS ORDERED: traMADol 50 MG TAB PO ONE (22:00)
[2019-05-16 23:00] VITALS: BP 105/60; PULSE 63; RESP 18
--- NOTE | 2019-05-21 18:34 | ERD ---
ER Documentation Chief Complaint Chief Complaint AP X 6 DAYS HPI History of Present Illness: 33-year-old female who denies a past medical history coming in today due to come complaint of lower abdominal pain that is been present for 3 weeks but has increased in the past 6 days. Associated symptoms include nausea, 2 episodes of diarrhea this week, dysuria, painful sex, bleeding during sex. Patient reports monogamous relationship with her spouse. At home pharmacological/nonpharmacological treatment for symptoms: Denies Denies social concerns; Denies recent foreign travel ROS All systems reviewed and are negative except as per history of present illness. Medications Home Meds Active Scripts Tramadol HCl (Tramadol HCl) 50 Mg Tablet, 50 MG PO Q8 PRN for MODERATE-SEVERE PAIN, #6 TAB Prov:JEY TRAMMELL [employer] 05/16/19 Acetaminophen* (Tylophen*) 500 Mg Capsule, 2 CAP PO Q6 PRN for MILD PAIN LEVEL 1-3, #30 CAP Prov:JEY TRAMMELL [employer] 05/16/19 Ondansetron (Ondansetron Odt) 4 Mg Tab.rapdis, 4 MG PO Q6H PRN for NAUSEA AND/OR VOMITING, #10 TAB Prov:JEY TRAMMELL [employer] 05/16/19 Famotidine* (Pepcid*) 20 Mg Tablet, 40 MG PO BID for 30 Days, TAB Prov:JEY TRAMMELL [employer] 05/16/19 Cephalexin* (Keflex*) 500 Mg Capsule, 500 MG PO BID for URINE INFECTION for 7 Days, CAP Prov:JEY TRAMMELL [employer] 05/16/19 D-Methorphan Hb/P-Epd HCl/Bpm (Oqhsmlbzag-Zixfhgozdix-Xn Syr) 118 Ml Syrup, 5 ML PO Q4H PRN for COUGH, #1 BOTTLE Prov:GRICELDA ARREDONDO DO 01/26/19 Methocarbamol* (Robaxin*) 750 Mg Tablet, 750 MG PO TID PRN for MUSCLE SPASMS, #30 TAB Prov:GRICELDA ARREDONDO DO 01/26/19 Acetaminophen* (Tylenol*) 325 Mg Tablet, 650 MG PO Q6H PRN for MILD PAIN(1-3)OR ELEVATED TEMP, #60 TAB Prov:GRICELDA ARREDONDO DO 01/26/19 Metoclopramide* (Reglan*) 10 Mg Tablet, 10 MG PO Q6 PRN for NAUSEA AND/OR VOMITING, #10 TAB Prov:NEVIN FONTANEZ MD 12/07/18 Famotidine* (Pepcid*) 20 Mg Tablet, 20 MG PO BID for 14 Days, TAB Prov:NEVIN FONTANEZ MD 12/07/18 Ondansetron (Ondansetron Odt) 8 Mg Tab.rapdis, 8 MG PO Q6H PRN for NAUSEA AND/OR VOMITING, #10 TAB Prov:ILIANA AGUSTIN MD 12/05/18 Ibuprofen* (Motrin*) 600 Mg Tab, 600 MG PO Q6, #20 TAB Prov:ILIANA AGUSTIN MD 12/05/18 Ondansetron (Ondansetron Odt) 4 Mg Tab.rapdis, 4 MG PO Q6H PRN for NAUSEA AND/OR VOMITING, #10 TAB Prov:ABHIJIT AARON PA-C 03/28/17 Acetaminophen with Codeine (Acetaminophen-Cod #3 Tablet) 1 Each Tablet, 1 TAB PO Q6H PRN for PAIN, #14 TAB Prov:ABHIJIT AARON PA-C 03/28/17 Metronidazole* (Flagyl*) 500 Mg Tablet, 500 MG PO TID for 7 Days, TAB no drinking alcohol while taking this medication Prov:ABHIJIT AARON PA-C 03/28/17 Ciprofloxacin Hcl* (Ciprofloxacin Hcl*) 500 Mg Tablet, 500 MG PO BID for 7 Days, TAB Prov:ABHIJIT AARON PA-C 03/28/17 Lorazepam* (Ativan*) 0.5 Mg Tablet, 0.5 MG PO Q8H PRN for ANXIETY, #10 TAB Prov:PEARL PETERSON 03/02/17 Ciprofloxacin Hcl* (Ciprofloxacin Hcl*) 500 Mg Tablet, 500 MG PO BID for 5 Days, TAB Prov:PEARL PETERSON 03/02/17 Ibuprofen* (Ibuprofen*) 600 Mg Tablet, 600 MG PO Q6 for 3 Days, TAB Prov:CEDRICK WYMAN 12/15/16 Lorazepam* (Ativan*) 0.5 Mg Tablet, 0.5 MG PO Q8H PRN for ANXIETY, #10 TAB Prov:PAPI OLIVIA MD 08/01/16 Allergies Allergies: Coded Allergies: ibuprofen (Verified Allergy, Severe, Rashes, itching, throat swelling, 05/16/19) PMhx/Soc History of Surgery: Yes (appendectomy) Anesthesia Reaction: No Hx Neurological Disorder: No Hx Respiratory Disorders: No Hx Cardiac Disorders: Yes (HTN) Hx Psychiatric Problems: No Hx Miscellaneous Medical Probl: No Hx Alcohol Use: No Hx Substance Use: No Hx Tobacco Use: No Smoking Status: Never smoker FmHx Family History: No diabetes Physical Exam Physical Exam Const: No acute distress, afebrile Head: Atraumatic Eyes: Normal Conjunctiva ENT: Normal External Ears, Nose and Mouth. Neck: Full range of motion. No meningismus. Resp: Clear to auscultation bilaterally Cardio: Regular rate and rhythm, no murmurs Abd: Soft, suprapubic tenderness and right upper quadrant tenderness, grimacing upon exam, normal bowel sounds., non distended. Normal bowel sounds. No guarding, no masses, no rigidity Skin: No petechiae or rashes Back: No midline or flank tenderness Ext: No cyanosis, or edema Neur: Awake and alert x3, speaking in clear sentences, no focal deficits or facial asymmetry Psych: Normal Mood and Affect Results 24 hrs Laboratory Tests Test 05/16/19 19:30 05/16/19 19:36 05/16/19 19:43 White Blood Count 6.6 10^3/ul Red Blood Count 3.97 10^6/ul Hemoglobin 12.0 g/dl Hematocrit 35.0 % Mean Corpuscular Volume 88.2 fl Mean Corpuscular Hemoglobin 30.2 pg Mean Corpuscular 34.3 g/dl Hemoglobin Concent Red Cell Distribution Width 12.6 % Platelet Count 221 10^3/UL Mean Platelet Volume 10.5 fl Immature Granulocytes % 0.800 % Neutrophils % 56.5 % Lymphocytes % 33.6 % Monocytes % 7.6 % Eosinophils % 1.2 % Basophils % 0.3 % Nucleated Red Blood Cells % 0.0 /100WBC Immature Granulocytes # 0.050 10^3/ul Neutrophils # 3.7 10^3/ul Lymphocytes # 2.2 10^3/ul Monocytes # 0.5 10^3/ul Eosinophils # 0.1 10^3/ul Basophils # 0.0 10^3/ul Nucleated Red Blood Cells # 0.0 10^3/ul Urine Color STRAW Urine Clarity SLIGHTLY CLOUDY Urine pH 7.0 Urine Specific [place] 1.009 Urine Ketones NEGATIVE mg/dL Urine Nitrite NEGATIVE mg/dL Urine Bilirubin NEGATIVE mg/dL Urine Urobilinogen NEGATIVE mg/dL Urine Leukocyte Esterase 3+ Celestino/ul Urine Microscopic RBC 2 /HPF Urine Microscopic WBC 26 /HPF Urine Squamous Epithelial Cells FEW /HPF Urine Bacteria FEW /HPF Urine Hemoglobin NEGATIVE mg/dL Urine Glucose NEGATIVE mg/dL Urine Total Protein NEGATIVE mg/dl Sodium Level 141 mmol/L Potassium Level 4.2 mmol/L Chloride Level 105 mmol/L Carbon Dioxide Level 27 mmol/L Anion Gap 9 Blood Urea Nitrogen 13 mg/dl Creatinine 0.80 mg/dl Est Glomerular Filtrat > 60 mL/min Rate mL/min Glucose Level 94 mg/dl Calcium Level 8.9 mg/dl Total Bilirubin 0.3 mg/dl Direct Bilirubin 0.00 mg/dl Indirect Bilirubin 0.3 mg/dl Aspartate Amino 22 IU/L Transf (AST/SGOT) Alanine 26 IU/L Aminotransferase (ALT/SGPT) Alkaline Phosphatase 59 IU/L Total Protein 8.0 g/dl Albumin 4.3 g/dl Globulin 3.70 g/dl Albumin/Globulin Ratio 1.16 Lipase 185 U/L Chlamydia trachomatis RNA (TMA) NOT DETECTED Chlamydia/GC Comment SEE NOTE Neisseria gonorrhoeae RNA (TMA) NOT DETECTED POC Beta HCG, Qualitative NEGATIVE Current Medications Medications Dose Sig/Sunny Start Time Status Last (Trade) Ordered Route PRN Stop Time Admin Dose Reason Admin Famotidine 20 mg ONCE STAT 05/16/19 DC 05/16/19 (Pepcid) PO 19:24 19:42 05/16/19 19:27 Ketorolac 60 mg ONCE STAT 05/16/19 DC Tromethamine IM 19:24 (Toradol) 05/16/19 19:33 Ondansetron 4 mg ONCE STAT 05/16/19 DC 05/16/19 HCl (Zofran ODT 19:24 19:42 Odt) 05/16/19 19:27 Ceftriaxone 1 gm ONCE ONCE 05/16/19 DC 05/16/19 Sodium IM 21:30 21:51 (Rocephin) 05/16/19 21:32 Lidocaine 2.1 ml ONCE ONCE 05/16/19 DC 05/16/19 (Xylocaine INFIL 21:30 21:52 1% (Mpf)) 05/16/19 21:32 1,000 mg ONCE ONCE 05/16/19 DC 05/16/19 Azithromycin PO 21:30 21:52 (Zithromax) 05/16/19 21:32 1,000 mg ONCE ONCE 05/16/19 DC 05/16/19 Metronidazole PO 21:30 21:52 (Flagyl) 05/16/19 21:32 Ondansetron 4 mg ONCE STAT 05/16/19 DC 05/16/19 HCl (Zofran ODT 21:29 21:54 Odt) 05/16/19 21:32 Tramadol 50 mg ONCE ONCE 05/16/19 DC 05/16/19 HCl PO 22:00 21:55 (Ultram) 05/16/19 22:01 Procedures/MDM ED COURSE: ED course includes a thorough examination and history. The patient was stable throughout ED course. I kept the patient and/or family informed of laboratory and diagnostic imaging results throughout the ED course. LABS: CBC: no e/o of systemic infection or severe anemia; increased granulocyte CMP: no e/o severe acidosis, alkalosis, renal failure, diabetic ketoacidosis, liver disease Urinalysis negative for . Lipase within normal limits Urinalysis positive for 3+ leukocyte Estrace, 26 WBCs, few bacteria Urogenital wet mount positive for trichomonas Gonorrhea chlamydia pending MEDICATIONS GIVEN IN ER: Famotidine, Zofran, patient tolerated medication well with no adverse reactions. Patient reported improvement in pain. DIAGNOSTIC IMAGING: Read by radiologist. Gallbladder ultrasound: IMPRESSION: Distal pancreas not well visualized. If characterization of this structure is needed repeat exam or CT/MRI is recommended. Otherwise, unremarkable exam. RPTAT: AA .Kenneth Castillo MD, Date Time Electronically viewed and signed by .Kenneth Castillo MD, on 05/16/2019 20:54 Pelvic ultrasound: IMPRESSION: Small amount of nonspecific free fluid in the cul-de-sac. This could be physiologic in nature. Otherwise, unremarkable exam. If further characterization of the organs of the pelvis is needed MRI should be considered. RPTAT: AA .Kenneth Castillo MD, MD Date Time Electronically viewed and signed by .Kenneth Castillo MD, MD on 05/16/2019 20:55 PROCEDURES: None. MEDICAL DECISION MAKING: Low suspicion for life-threatening medical emergency. Low suspicion for acute abdominal emergency. Low suspicion for infectious process that requires hospitalization. Otherwise healthy patient presenting with constellation of symptoms likely representing uncomplicated abdominal pain, urinary tract infection, trichomonas, pelvic pain secondary to free fluid as characterized by history, physical exam f indings, imaging findings, lab findings. Patient reassessment @ 2131: Results discussed. Patient went still with pain despite famotidine administration. Orders placed for tramadol and Zofran. Due to findings of trichomonas, Flagyl ordered. Patient will also prophylactically be treated for gonorrhea chlamydia. Had to step out to talk to patient privately using school age program teacher to clarify his symptoms and history. Patient reports monogamous relationship. Informed patient that her is awaiting to be treated as well. Sustained from sex until treatment shows test of cure and partners treated. Patient reassessment at 2200: Disposition given. Patient medicated as ordered. Patient educated that partner will need to be treated. Patient hemodynamically stable. No respiratory distress, otherwise relatively well appearing and nontoxic. Disposition given. Patient educated on diagnoses, prescriptions, follow-up care, return precautions. Strict return precautions given for worsening condition; questions answered discharge. Patient verbalizes understanding of discharge instructions. PRESCRIPTIONS FOR HOME: Keflex, tramadol, famotidine, Zofran, acetaminophen DISPOSITION: DISCHARGE At this time, patient is stable for discharge and outpatient management. I have instructed the patient to follow-up with his/her primary care physician in 1-2 days. I have discussed with the patient the possibility of needing to see a specialist for further workup and imaging studies if symptoms persist. I have instructed the patient to promptly return to the ER for any new or worsening symptoms including increased pain, fever, nausea, vomiting, weakness or LOC. The patient and/or family expressed understanding of and agreement with this plan. All questions were answered. Home care instructions were provided. DISCLAIMER: Inadvertent spelling and grammatical errors are likely due to EHR/dictation software use and do not reflect on the overall quality of patient care. Also, please note that the electronic time recorded on this note does not necessarily reflect the actual time of the patient encounter. Departure Diagnosis: Primary Impression: Abdominal pain Additional Impressions: Urinary tract infection Vaginal trichomoniasis Pelvic pain Condition: Stable Patient Instructions: Abdominal Pain, Urinary Tract Infections in Women, Gerd (Adult), Trichomonas Vaginalis (Discharge) Referrals: [facility] Usted se arteaga hecho un examen mdico de control que le indica que no est en barbara condicin que requiera tratamiento urgente en el Departamento de Emergencia. Un estudio ms profundo y el tratamiento de muniz condicin pueden esperar sin ningn riesgo hasta que usted sea atendida/o en el consultorio de muniz mdico o barbara clnica. Es responsabilidad suya arreglar barbara maki para el seguimiento del afshin. MANEJO DE CONDICIONES NO URGENTES EN EL FUTURO 1) Si usted tiene un mdico de atencin primaria: Usted debera llamar a muniz mdico de atencin primaria antes de venir al departamento de emergencia. Despus de las horas de consultorio, muniz doctor o muniz asociado/a est disponible por telfono. El mdico o enfermero de nadiya en el servicio telefnico puede asesorarle por beverly medio para atender el problema, o afsihn contrario se puede programar barbara maki. 2) Si usted no tiene un mdico de atencin primaria: Llame al mdico o clnica de referencia que aparece abajo sacha las horas de consultorio para hacer barbara maki para que le vean. CLINICAS: [facility] [phone] [facility] [phone] [address] [facility] [phone] [address] [facility] [phone] [address] [facility]. [place] [id number] [phone] [facility]. [phone] [facility] () Usnora se arteaga hecho un examen mdico de control que le indica que no est en barbara condicin que requiera tratamiento urgente en el Departamento de Emergencia. Un estudio ms profundo y el tratamiento de muniz condicin pueden esperar sin ningn riesgo hasta que usted sea atendida/o en el consultorio de muniz mdico o barbara clnica. Es responsabilidad suya arreglar barbara maki para el seguimiento del afshin. MANEJO DE CONDICIONES NO URGENTES EN EL FUTURO 1) Si usted tiene un mdico de atencin primaria: Usted debera llamar a muniz mdico de atencin primaria antes de venir al departamento de emergencia. Despus de las horas de consultorio, muniz doctor o muniz asociado/a est disponible por telfono. El mdico o enfermero de nadiya en el servicio telefnico puede asesorarle por beverly medio para atender el problema, o afshin contrario se puede programar barbara maki. 2) Si usted no tiene un mdico de atencin primaria: Llame al mdico o condado institucions de referencia que aparece abajo sacha las horas de consultorio para hacer barbara maki para que le vean. SI USTED NO PUEDE PAGAR PARA SUSHANT UN MEDICO puede ir a: [facility] [address] [place] [address] [facility] [address] [place] [address] [facility] [address] [place] [address] [facility] [address] [place] [address] Additional Instructions: Google Translate utilizado para la traduccin de las siguientes lneas, por favor, disculpe los errores. Muchas jackson por permitirnos participar en muniz cuidado. Muniz azul y seguridad es nuestra principal prioridad en [facility]. Es importante leer todas las instrucciones de naomy y la educacin que se proporcionan en muniz paquete de naomy. *Todas selene parejas sexuales necesitan tratamiento debido a muniz diagnstico de tricomonas. Esta es barbara enfermedad de transmisin sexual. No tenga relaciones sexuales hasta que haya vuelto a hacerse la prueba de tricomonas y los resultados lester negativos.* Llame a muniz mdico de atencin primaria MAANA para barbara amki sacha los prximos 2 a 4 avalos y lleve toda la informacin y los medicamentos recetados. Llene las recetas y siga exactamente las instrucciones de la etiqueta. -Cefalexina es un antibitico; tome evette medicamento todos los avalos joss se indica en muniz receta. Debe completar todo el curso de tratamiento que figura en muniz receta. [place] es muy importante porque se necesitan varios avalos para eliminar las bacterias que causan la infeccin. -Zofran es un medicamento para las nuseas / vmitos; tome evette medicamento seg n sea necesario para las nuseas / vmitos / disminucin del apetito. --Acetaminofeno joss medicamento para el dolor y / o fiebre. Whitney evette medicamento segn sea necesario para el dolor leve a moderado. Evette medicamento no causar somnolencia. -Tramadol es un analgsico opiceo; tome evette medicamento segn sea necesario para el dolor moderado a intenso. No se opera maquinaria pesada mientras se joo evette medicamento. Puede causar somnolencia. - La famotidina es un medicamento que ayuda con el reflujo cido; tome evette medicamento segn lo prescrito para las prximas 1 a 2 semanas con el almuerzo y la rochelle. Informe a muniz mdico de atencin primaria si las nuseas ya no estn presentes con evette medicamento. Si es as, es muy probable que muniz reflujo cido est causando selene nuseas. Si los sntomas empeoran y muniz proveedor no est disponible, regrese inmediatamente al Departamento de Emergencias. ----- Google Translate used for translation of following lines, please excuse errors. Thank you very much for allowing us to participate in your care. Your health and safety is our top priority at [facility]. It is important to read all discharge instructions and education provided in your discharge packet. *All of your sexual partners need to be treated due to your diagnosis of trichomonas. This is sexually transmitted disease. No sexual intercourse until you have been retested for trichomonas and the findings are negative.* Call your primary care doctor TOMORROW for an appointment during the next 2-4 days and bring all the information and medications prescribed. Have prescriptions filled and follow precisely the directions on the label. -Cephalexin is antibiotic; take this medication every day as listed on your prescription. You must complete the entire course of treatment that is listed on your prescription this is very important because it takes a certain number of days to kill the bacteria that is causing the infection. -Zofran is a medication for nausea/vomitting; take this medication as needed for nausea/vomiting/decreased appetite. --Acetaminophen as a medication for pain and/or fever. Take this medication as needed for mild to moderate pain. This medication will not cause drowsiness. -Tramadol is an opiate pain medication; take this medication as needed for moderate to severe pain. No operating of heavy machinery while taking this medication. It may cause drowsiness. --Famotidine is a medication that will help with acid reflux; take this medication as prescribed for the next 1 to 2 weeks with lunch and dinner. Report to your primary care doctor if the nausea is no longer present with this medication. If so, it is highly likely that your acid reflux is causing your nausea. If the symptoms get worse and your provider is unavailable, return to the Emergency Department immediately. JEY TRAMMELL NP May 21, 2019 18:33
== END 2019-05-16 23:00 | disposition home or self-care (01) ==
LOC: FTE 18:18
DX: N39.0 Urinary tract infection, site not specified (principal); I10 Essential (primary) hypertension; A59.01 Trichomonal vulvovaginitis; R10.2 Pelvic and perineal pain
CPT/HCPCS: 36415; 76705; 76830; 76856; 80053; 81001; 81025; 83690; 85025; 87210; 87591; 96372; J0696; Z7502; Z7610

== ENCOUNTER 2019-08-04 20:48 | Emergency (ER) | payer MEDICAID ==
[~2019-08-04] VITALS: Ht 152.4 cm; Wt 63.1 kg
[~2019-08-04 20:48] MED LIST changes: +ACET500C5 PO; +CEPH-443 PO; +TRAM50TA2 PO
[2019-08-04 21:18] VITALS: Ht 152.4 cm; Wt 63.1 kg
[2019-08-04] MEDS ORDERED: ONDANSETRON 4 MG INJ IV STA (22:58)
[2019-08-04] MEDS ORDERED: SOD CHLORIDE 0.9% 1,000 ML IV STA (22:58)
[2019-08-04] MEDS ORDERED: KETOROLAC 30 MG INJ IV STA (23:35)
[2019-08-05] MEDS ORDERED: DIPHENHYDRAMINE 50 MG INJ IV ONE (01:00)
[2019-08-05 02:00] VITALS: BP 106/76; PULSE 56; RESP 18
[2019-08-05] MEDS ORDERED: ONDANSETRON 4 MG INJ IV STA ×2 (02:03→02:05)
== END 2019-08-05 02:18 | disposition home or self-care (01) ==
LOC: E/R 20:48
DX: R10.32 Left lower quadrant pain (principal); I10 Essential (primary) hypertension; D64.9 Anemia, unspecified
CPT/HCPCS: 36415; 74176; 80053; 81003; 81025; 83690; 85025; 96361; 96374; 96375; 96376; J1200; J1885; J2405; J7030; Z7502